=== PATIENT | male | born 1965 | race Caucasian/White ===

== ENCOUNTER 2022-10-12 16:20 | Emergency (ER) | payer OTHER ==
[~2022-10-12] VITALS: Ht 175.3 cm; Wt 72.6 kg
[2022-10-12] MEDS ORDERED: ACHD5005 PO (16:56)
[2022-10-12] MEDS ORDERED: IBUP-1773 PO (16:56)
--- NOTE | 2022-10-12 16:57 | ED Upper Extremity ---
General Chief Complaint: Upper Extremity Stated Complaint: LEFT SHOLDER HURTING Source: patient Exam Limitations: no limitations History of Present Illness Date Seen by Provider: Oct 12, 2022 Time Seen by Provider: 16:51 Initial Comments Patient is a 57-year-old male who presents ED with left shoulder pain. Shoulder pain for the past month and a half. States it initially started after he hit his shoulder against the plastic piece between 2 doors on his truck. [place] a sharp pain. That pain has progressed to got worse over the past month and a half. He has tried physical therapy at home without much improvement. He is concerned for possible rotator cuff tear or muscular tear. Has not been seen yet for this injury. Attempted to call [facility] orthopedic but was not able to get appointment. Patient reports pain with any overhead movement and weakness. Pain radiates to the left elbow. Difficulty putting on close or lifting anything above his shoulder. 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 Patient has been taking Tylenol ibuprofen without much improvement. Difficulty sleeping at night secondary to the pain. Patient denies of any distal numbness and tingling into the left hand. No pain in his neck. Allergies and Home Medications Allergies Uncoded Allergies: EGGS (Adverse Reaction, Intermediate, throat swelling, 02/05/11) Patient Home Medication List Home Medication List Reviewed: Yes Hydrocodone/Acetaminophen (Hydrocodone-Acetamin 5-325 mg) 5 Mg-325 Mg Tablet, 1 TAB PO Q4H PRN for PAIN-MODERATE (5-7) Prescribed by: JEIMY PRESSLEY on 10/12/221656 Ibuprofen (Ibuprofen) 600 Mg Tablet, 600 MG PO Q6H Prescribed by: JEIMY PRESSLEY on 10/12/221655 Review of Systems Constitutional: No diaphoresis, No malaise, No weakness EENTM: No ear pain, No blurred vision, No double vision Respiratory: No cough, No dyspnea on exertion Cardiovascular: No chest pain Gastrointestinal: No abdominal pain, No diarrhea, No nausea, No vomiting Genitourinary: No decreased output, No discharge Musculoskeletal: No back pain; joint pain, muscle pain, muscle stiffness Skin: No change in color, No change in hair/nails All Other Systems Reviewed Negative Unless Noted: Yes Physical Exam Vital Signs Vital Signs - First Documented 10/12/22 16:34 Temp 36.4 Pulse 93 Resp 17 B/P (MAP) 98/77 (84) O2 Delivery Room Air Capillary Refill : Height, Weight, BMI Height: '" Weight: lbs. oz. kg; BMI Method:Stated General Appearance: WD/WN, no apparent distress HEENT: PERRL/EOMI, normal ENT inspection, TMs normal, pharynx normal Neck: non-tender, full range of motion, supple, normal inspection Cardiovascular: regular rate, rhythm, no edema, no gallop, no JVD Respiratory: chest non-tender, lungs clear, normal breath sounds, no respirat ory distress, no accessory muscle use Gastrointestinal: normal bowel sounds, non tender, soft, no organomegaly Back: normal inspection, no CVA tenderness Shoulder: limited ROM (Pain with flexion extension above 70 degrees. Weakened strength 4/5 with empty can test and speeds test. 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, no motor/sensory deficits, alert, normal mood/affect, oriented x 3 Skin: normal color, warm/dry Progress/Results/Core Measures Results/Orders My Orders Orders - JESSICA VEGA Hydrocodone/Apap 5/325 Tablet (Lortab 5 (10/12/22 17:01) Medications Given in ED Current Medications Medications Dose Ordered Sig/Balaji Route Start Time Stop Time Status Last Admin Dose Admin Acetaminophen/ Hydrocodone Bitart 1 ea STK-MED ONCE .ROUTE 10/12/22 17:01 10/12/22 17:03 DC 10/12/22 17:00 1 EA Vital Signs/I&O 10/12/22 16:34 Temp 36.4 Pulse 93 Resp 17 B/P (MAP) 98/77 (84) O2 Delivery Room Air Departure Communication (PCP) Reviewed previous ER visits, H&P, medication. Due to current complaint of left shoulder pain secondary to mechanism of injury and length of symptoms recommended a x-ray but patient refused. He states this feels more muscular or tendon injury. He did have some notable weakness with flexion and abduction above the shoulder. 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 Negative Spurling test. No headache or dizziness. No chest pain or shortness of breath. Did have some crepitus with range of motion. Concerning for arthritic versus rotator cuff injury versus proximal bicep tendon injury. There appeared to be no evidence of bicipital tear with examining both arms. Anything over the shoulder seems to be worse. I do recommend further orthopedic evaluation. Was requesting a few days worth of pain medication. He has been in contact with for states orthopedic. Will likely need x-ray first and then MRI. Not able to rule out a fracture patient acknowledges. Return precautions were discussed with patient. Impression Primary Impression: Shoulder pain Disposition: HOME, SELF-CARE Condition: Stable Departure-Patient Inst. Decision time for Depature: 16:55 Referrals: [facility] [place] ROBIN,LOCAL PHYSICIAN (PCP) Primary Care Physician Patient Instructions: Shoulder Pain (DC) Add. Discharge Instructions: Recommend follow-up with orthopedic for further evaluation. Work on range of motion exercises. Ice to help with swelling. All discharge instructions reviewed with patient and/or family. Voiced understanding. Scripts Ibuprofen (Ibuprofen) 600 Mg Tablet 600 MG PO Q6H for PAIN, #20 TAB 0 Refills Prov: JESSICA VEGA 10/12/22 Hydrocodone/Acetaminophen (Hydrocodone-Acetamin 5-325 mg) 5 Mg-325 Mg Tablet 1 TAB PO Q4H PRN for PAIN-MODERATE (5-7), #8 TAB Prov: JESSICA VEGA 10/12/22 JESSICA VEGA Oct 12, 2022 16:57
[2022-10-12 17:00] VITALS: BP 137/86
[2022-10-12] MEDS ORDERED: HYDROcodone/APAP 5 MG/325 MG (LORTAB) TAB ONE (17:01)
== END 2022-10-12 17:00 | disposition home or self-care (01) ==
LOC: EDUNIT# 16:20 → ER 16:30
DX: M25.512 Pain in left shoulder (principal); Z28.310 Unvaccinated for COVID-19; W22.8XXA Striking against or struck by other objects, initial encounter

== ENCOUNTER 2022-12-28 10:26 | Emergency (ER) | payer OTHER ==
[2022-12-28] MEDS ORDERED: ACHD5005 PO (11:12)
--- NOTE | 2022-12-28 11:12 | ED Upper Extremity ---
General Chief Complaint: Upper Extremity Stated Complaint: LT SHOULDER PAIN Nursing Triage Note: PT AMB TO RM 3 WITH CC OF L SHOULDER PAIN. 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 PT REPORTS CALLED PCP AND WAS TOLD TO COME TO ED FOR PAIN MANAGEMENT. Source: patient Exam Limitations: no limitations History of Present Illness Date Seen by Provider: Dec 28, 2022 Time Seen by Provider: 11:07 Initial Comments Patient is a 57-year-old male who presents ED with left shoulder pain. Patient reports pain over the past 2 to 3 months. Injured his left shoulder. States he has had discontinue sharp pain radiating from the left shoulder to the lateral arm and into the wrist and hand. Pain for the most part is constant worse with any type of movement. Worse when he lays on his left arm. Pain does appear to radiate up into the left side and neck. [facility] Currently working on getting patient a follow-up visit with orthopedic. 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 Denies chest pain, cough or shortness of breath. Patient has been taken Tylenol and ibuprofen without much improvement. States he is having difficulty sleeping secondary to the pain. He Was not able to get a visit with his [facility] provider this week after multiple calls Allergies and Home Medications Allergies Uncoded Allergies: EGGS (Adverse Reaction, Intermediate, throat swelling, 02/05/11) Patient Home Medication List Home Medication List Reviewed: Yes Hydrocodone/Acetaminophen (Hydrocodone-Acetamin 5-325 mg) 5 Mg-325 Mg Tablet, 1 TAB PO Q4H PRN for PAIN-MODERATE (5-7) Prescribed by: JEIMY PRESSLEY on 10/12/22 1657 Hydrocodone/Acetaminophen (Hydrocodone-Acetamin 5-325 mg) 5 Mg-325 Mg Tablet, 1 TAB PO Q4H PRN for PAIN-MODERATE (5-7) Prescribed by: JEIMY PRESSLEY on 12/28/22 1112 Ibuprofen (Ibuprofen) 600 Mg Tablet, 600 MG PO Q6H Prescribed by: EJIMY PRESSLEY on 10/12/22 1656 Review of Systems Constitutional: No chills, No diaphoresis, No fever, No malaise, No weakness EENTM: No ear discharge, No blurred vision, No double vision, No dental problems, No hoarseness, No mouth pain, No mouth swelling Respiratory: No cough, No dyspnea on exertion Cardiovascular: No chest pain Gastrointestinal: No abdominal pain, No diarrhea, No nausea, No vomiting Genitourinary: No decreased output, No discharge Musculoskeletal: No back pain; joint pain, muscle pain, muscle stiffness Skin: No change in color, No change in hair/nails All Other Systems Reviewed Negative Unless Noted: Yes Past Pasfkbv-Cuwwoi-Rabvlr Hx Patient Social History Tobacco Use?: Yes Tobacco type used: Cigarettes Smoking Status: Current Everyday Smoker Substance use?: No Alcohol Use?: No Pt feels they are or have been: No Physical Exam Vital Signs Vital Signs - First Documented 12/28/22 10:40 Pulse 81 Resp 18 B/P (MAP) 123/90 (101) Pulse Ox 99 O2 Delivery Room Air Capillary Refill : Less Than 3 Seconds Height, Weight, BMI Height: '" Weight: lbs. oz. kg; 23.00 BMI Method:Stated General Appearance: WD/WN, no apparent distress HEENT: PERRL/EOMI, normal ENT inspection, TMs normal, pharynx normal Neck: non-tender, full range of motion, supple, normal inspection, other (Negative Spurling sign. No cervical midline tenderness. Normal active range of motion the neck) Cardiovascular: regular rate, rhythm, no edema, no gallop, no JVD Respiratory: chest non-tender, lungs clear, normal breath sounds, no respiratory distress, no accessory muscle use Gastrointestinal: normal bowel sounds, non tender, soft, no organomegaly Back: normal inspection, no CVA tenderness, no vertebral tenderness Shoulder: limited ROM, soft tissue tenderness (Tenderness to the left lateral shoulder, left proximal lateral humerus. Limited passive range of motion to 0 to 90 degrees. Pain with abduction, flexion with mild weakness. 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 Neurovascular intact. No skin color changes. 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 Patient presents to ED with continuous left shoulder pain. Patient was seen here October 12 for this left shoulder pain. Patient states he followed up with his [facility] provider and had a scheduled MRI performed today. He states over the past 4 to 5 days he has had increasing worsening pain. Difficulty sleeping. Unable to sleep on the left arm. Sharp pain radiating from the left shoulder to the elbow and wrist. Differential diagnosis cervical radiculopathy, rotator cuff injury, impingement syndrome. Does report some cramping of the left arm. Denies of any chest pain, cough or shortness of breath. MRI currently pending. Patient denies of any recent traumas. 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 Any over the head movement makes the pain worse. Weakness with abduction and flexion. Positive liftoff test. Pain with internal and external rotation. Concerning for rotator cuff versus capsulitis versus impingement. Does have some pain to the left trapezius. Due to the sharp shooting pain radiating to the wrist this could be cervical radiculopathy, however he had a negative Spurling test. If MRI inconclusive may benefit with EMG. No chest pain, cough or shortness of breath. Requesting for a few days of pain medication as he was not able to be seen by his [facility] provider for the past week. Multiple calls without receiving a call back. Has been using Tylenol ibuprofen without much improvement. We will provide a few days worth. It would likely benefit with formal therapy as this could develop into frozen shoulder Impression Primary Impression: Shoulder pain Disposition: 01 HOME, SELF-CARE Condition: Stable Departure-Patient Inst. Decision time for Depature: 11:10 Referrals: ANITA BULL (PCP) Primary Care Physician RAFAEL FREDERICK MD Patient Instructions: Muscle Strain (DC) Add. Discharge Instructions: Need to follow-up with orthopedic. If any worsening symptoms return back to ED All discharge instructions reviewed with patient and/or family. Voiced un derstanding. Scripts Hydrocodone/Acetaminophen (Hydrocodone-Acetamin 5-325 mg) 5 Mg-325 Mg Tablet 1 TAB PO Q4H PRN for PAIN-MODERATE (5-7), #8 TAB Prov: JESSICA VEGA 12/28/22 JESSICA VEGA Dec 28, 2022 11:12
[2022-12-28 11:17] VITALS: BP 118/83
== END 2022-12-28 11:17 | disposition home or self-care (01) ==
LOC: EDUNIT# 10:26 → ER 10:28
DX: M25.512 Pain in left shoulder (principal); F17.210 Nicotine dependence, cigarettes, uncomplicated
CPT/HCPCS: 99281

== ENCOUNTER → 2022-12-28 | Outpatient (CLI) | payer OTHER ==
[~2022-12-28] MED LIST: ACHD5005 PO; IBUP-1773 PO
--- NOTE | 2022-12-28 10:36 | Diagnostic Imaging Report ---
EXAMINATION: Magnetic resonance imaging of the left shoulder without contrast. DATE: December 28, 2022. COMPARISON: None. HISTORY: 57-year-old male, left shoulder pain. TECHNIQUE: Magnetic Resonance Imaging sequences were performed of the shoulder without contrast. FINDINGS: ROTATOR CUFF, LIGAMENTS, TENDONS, AND MUSCLES: The supraspinatus, infraspinatus, teres minor, and subscapularis tendons and muscles are intact. There is normal rotator cuff muscle bulk and signal. LONG HEAD OF BICEPS: The biceps labral attachment and long head of the biceps tendon is intact. The long head of the biceps tendon is normally positioned within the bicipital groove. GLENOHUMERAL JOINT: The humeral head is well positioned relative to the glenoid. The labrum is grossly intact. There is no identified paralabral cyst. The articular cartilage is grossly intact. There is no glenohumeral joint effusion. There is mild thickening and increased signal of the axillary pouch. There is also loss of normal fat signal in the rotator interval. ACROMIOCLAVICULAR JOINT: The acromioclavicular joint is normally aligned. The coracoclavicular and coracoacromial ligaments are intact. There are no degenerative changes of the acromioclavicular joint. BONE: There is no os acromiale. There is no Hill-Sachs deformity. There is no acute fracture, bone contusion, or evidence of osteonecrosis. BURSAE AND SOFT TISSUES: The bursae and soft tissue surrounding the shoulder are unremarkable. IMPRESSION: 1. Intact rotator cuff and proximal long head of the biceps tendon. 2. Intact labrum and articular cartilage of the glenohumeral joint. No glenohumeral joint effusion. 3. Mild thickening and increased signal of the axillary pouch as well as loss of normal fat signal in the rotator interval which MRI findings which can be associated with adhesive capsulitis although this would be a clinical diagnosis. 4. No acute fracture, bone contusion, or other notable bone marrow signal abnormality. 5. Intact acromioclavicular joint. Dictated by: Dictated on workstation # [id number]
--- NOTE | 2022-12-28 11:39 | Diagnostic Imaging Report ---
Exam: MRI left humerus without contrast. Date: December 28, 2022. Indication: 57-year-old male, left humerus pain. Injury. Comparison: Same day MRI shoulder December 28, 2022. Technique: Multiple noncontrast MRI sequences of the left humerus were obtained. Findings: The imaged tendons are intact. There is no identified abnormal intramuscular signal. There is normal muscle bulk. There is no acute fracture, bone contusion, or other bone marrow signal abnormality. Additional soft tissue assessment is unremarkable. There is no elbow joint effusion. Please see separately dictated same MRI left shoulder report for findings at the level of the left shoulder. Impression: 1. Intact imaged muscles and tendons. 2. No acute fracture or bone contusion. 3. Please see separately dictated MRI left shoulder report for findings at the level of the left glenohumeral joint. Dictated by: Dictated on workstation # [id number]
== END ==
LOC: RAD 09:05
PROVIDERS: ATTEND Nurse Practitioner
DX: Z01.89 Encounter for other specified special examinations (principal)
CPT/HCPCS: 73218; 73221

== ENCOUNTER 2023-02-07 14:14 | Emergency (ER) | payer OTHER ==
[~2023-02-07] VITALS: Ht 175.2 cm; Wt 73.0 kg
[2023-02-07 14:18] VITALS: BP 160/87
[2023-02-07] MEDS ORDERED: METH4TAB10 PO (14:36)
[2023-02-07] MEDS ORDERED: NAPR-915 PO (14:36)
--- NOTE | 2023-02-07 14:36 | ED Upper Extremity ---
General Chief Complaint: Upper Extremity Stated Complaint: LT ARM PAIN Source: patient Exam Limitations: no limitations History of Present Illness Date Seen by Provider: Feb 07, 2023 Time Seen by Provider: 14:34 Initial Comments Patient is a 57-year-old male who presents ED for chronic left shoulder pain. Injury this past May. Had MRIs performed of his shoulder. Currently waiting to be evaluated by orthopedic. Patient was seen in December for similar type pain. States that he was doing better with in-home physical therapy. Started increased workload and noted increasing pain of the left shoulder. Pain radiates from the left top of the shoulder down to the left elbow. Pain with overhead movement. Denies of any numbness and tingling the left hand. Patient has been taken Tylenol without much improvement. Denies headache, dizziness, neck pain, nausea, vomit, diarrhea fever, chills. Allergies and Home Medications Allergies Uncoded Allergies: EGGS (Adverse Reaction, Intermediate, throat swelling, 02/05/11) Patient Home Medication List Home Medication List Reviewed: Yes Hydrocodone/Acetaminophen (Hydrocodone-Acetamin 5-325 mg) 5 Mg-325 Mg Tablet, 1 TAB PO Q4H PRN for PAIN-MODERATE (5-7) Prescribed by: JEIMY PRESSLEY on 10/12/22 1657 Hydrocodone/Acetaminophen (Hydrocodone-Acetamin 5-325 mg) 5 Mg-325 Mg Tablet, 1 TAB PO Q4H PRN for PAIN-MODERATE (5-7) Prescribed by: JEIMY PRESSLEY on 12/28/22 1112 Ibuprofen (Ibuprofen) 600 Mg Tablet, 600 MG PO Q6H Prescribed by: JEIMY PRESSLEY on 10/12/22 1656 Methylprednisolone (Methylprednisolone Dose Pack) 4 Mg Tab.ds.pk, 4 MG PO UD Prescribed by: JEIMY PRESSLEY on 02/07/23 1436 Naproxen (Naproxen) 500 Mg Tablet, 500 MG PO Q12H Prescribed by: JEIMY PRESSLEY on 02/07/23 1436 Review of Systems Constitutional: No chills, No diaphoresis, No fever, No malaise, No weakness EENTM: No hearing loss, No blurred vision, No double vision Respiratory: No cough Cardiovascular: No chest pain Gastrointestinal: No abdominal pain, No nausea, No vomiting Genitourinary: No decreased output, No discharge Musculoskeletal: No back pain; joint pain, muscle pain, muscle stiffness Skin: No change in color All Other Systems Reviewed Negative Unless Noted: Yes Physical Exam Vital Signs Capillary Refill : Height, Weight, BMI Height: '" Weight: lbs. oz. kg; 23.00 BMI Method:Stated General Appearance: WD/WN, no apparent distress HEENT: PERRL/EOMI, normal ENT inspection, TMs normal, pharynx normal Neck: non-tender, full range of motion, supple, normal inspection Cardiovascular: regular rate, rhythm, no edema, no gallop, no JVD Respiratory: chest non-tender, lungs clear, normal breath sounds, no respiratory distress, no accessory muscle use Gastrointestinal: normal bowel sounds, non tender, soft, no organomegaly Back: normal inspection, no CVA tenderness Shoulder: limited ROM (Limited range of motion passive over 90 degrees. Audit Spec strength out of 5. Anterior and left posterior shoulder tenderness. Strength with internal and external rotation 5 out of 5. 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, no motor/sensory deficits, alert, normal mood/affect, oriented x 3 Skin: normal color, warm/dry Progress/Results/Core Measures Results/Orders My Orders Orders - JESSICA VEGA Ketorolac Injection (Toradol Injection) (02/07/23 14:45) Orphenadrine Inj (Ed Only) (Norflex Inje (02/07/23 14:45) Medications Given in ED Current Medications Medications Dose Ordered Sig/Balaji Route Start Time Stop Time Status Last Admin Dose Admin Ketorolac Tromethamine 30 mg ONCE ONCE IM 02/07/23 14:45 02/07/23 14:46 02/07/23 14:40 30 MG Orphenadrine Citrate 60 mg ONCE ONCE IM 02/07/23 14:45 02/07/23 14:46 02/07/23 14:40 60 MG Departure Communication (PCP) Reviewed previous ER visits, H&P, lab testing. Differential diagnoses chronic shoulder pain, shoulder sprain and strain. Reviewed MRIs performed on December 28 which showed concern of adhesive capsulitis. Intact muscles and tendons. Intact rotator cuff, labrum. Patient states he is currently following up with his primary care physician. Has not followed up with orthopedic. Patient has been taken Tylenol. Patient states he has been doing physical therapy but potentially reinjured it while lifting heavy objects at work. 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 Denies of any falls. On exam he does have limited passive range of motion above 90 degrees. No severe weakness noted. Reviewed MRIs with patient. Discussed the importance of physical therapy at home. Discussed with patient we will not continue prescribing narcotics. Patient can follow-up with his primary care physician. Provided dose of Toradol and Norflex. Will discharge with Medrol Dosepak and naproxen. Continue with your stretching at home. Provided limitations for at work for the next week. Return precaution were discussed with patient. Patient denies any chest pain or shortness of breath Impression Primary Impression: Shoulder pain Disposition: HOME, SELF-CARE Condition: Stable Departure-Patient Inst. Decision time for Depature: 14:35 Referrals: ANITA BULL (PCP/Family) Primary Care Physician Patient Instructions: Shoulder Pain (DC) Scripts Naproxen (Naproxen) 500 Mg Tablet 500 MG PO Q12H, #20 TAB Prov: JESSICA VEGA 02/07/23 Methylprednisolone (Methylprednisolone Dose Pack) 4 Mg Tab.ds.pk 4 MG PO UD for 6 Days, #21 PKG PER DOSE PACK INSTRUCTIONS Prov: JESSICA VEGA 02/07/23 Work/School Note: Work Release Form Date Seen in the Emergency Department: Feb 07, 2023 Other Restrictions Listed Below: Avoid lifting greater than 10 pounds for the next week the left arm JESSICA VEGA Feb 07, 2023 14:36
[2023-02-07] MEDS ORDERED: ORPHENADRINE 60 MG/2 ML (NORFLEX) AMP (ED ONLY) IM ONE (14:45)
[2023-02-07] MEDS ORDERED: KETOROLAC 30 MG/ML VIAL IM ONE (14:45)
== END 2023-02-07 14:47 | disposition home or self-care (01) ==
LOC: EDUNIT# 14:14 → ER 14:15
DX: M25.512 Pain in left shoulder (principal); X50.0XXA Overexertion from strenuous movement or load, initial encounter; Y92.59 Other trade areas as the place of occurrence of the external cause; Y99.0 Civilian activity done for income or pay
CPT/HCPCS: 99284

== ENCOUNTER 2023-04-18 11:57 | Emergency (ER) | payer OTHER ==
[~2023-04-18] VITALS: Ht 172 cm; Wt 72.0 kg
[~2023-04-18 11:57] MED LIST changes: +METH4TAB10 PO; +NAPR-915 PO
[2023-04-18 12:35] LABS: BASOPHILS % (AUTO) 0 % (0-10); EOSINOPHILS # (AUTO) 0.3 10^3/uL (0.0-0.3); EOSINOPHILS % (AUTO) 5 % (0-10); HEMATOCRIT 46 % (40-54); HEMOGLOBIN 15.4 g/dL (13.3-17.7); LYMPHOCYTES # (AUTO) 2.3 10^3/uL (1.0-4.0); LYMPHOCYTES % (AUTO) 34 % (12-44); MEAN CORPUSCULAR HEMOGLOBIN 33 pg (25-34); MEAN CORPUSCULAR HGB CONC 33 g/dL (32-36); MEAN CORPUSCULAR VOLUME 100 fL (80-99); MEAN PLATELET VOLUME 9.3 fL (9.0-12.2); MONOCYTES # (AUTO) 0.3 10^3/uL (0.0-1.0); MONOCYTES % (AUTO) 5 % (0-12); NEUTROPHILS # (AUTO) 3.7 10^3/uL (1.8-7.8); NEUTROPHILS % (AUTO) 56 % (42-75); PLATELET COUNT 332 10^3/uL (130-400); WHITE BLOOD COUNT 6.7 10^3/uL (4.3-11.0)
[2023-04-18 12:51] LABS: BUN/CREATININE RATIO 10; CARBON DIOXIDE 24 MMOL/L (21-32); CHLORIDE 98 MMOL/L (98-107); CREATININE SERUM 0.88 MG/DL (0.60-1.30); GFR ESTIMATED 102; GLUCOSE 169 MG/DL (70-105); POTASSIUM 3.9 MMOL/L (3.6-5.0); SODIUM 135 MMOL/L (135-145)
[2023-04-18 12:52] LABS: ALANINE AMINOTRANSFERASE 18 U/L (0-55); ALBUMIN 4.6 GM/DL (3.2-4.5); ALKALINE PHOSPHATASE 60 U/L (40-136); BILIRUBIN,TOTAL 0.5 MG/DL (0.1-1.0); CALCIUM 9.8 MG/DL (8.5-10.1); MAGNESIUM 2.2 MG/DL (1.6-2.4); TOTAL PROTEIN 7.6 GM/DL (6.4-8.2)
--- NOTE | 2023-04-18 12:56 | Diagnostic Imaging Report ---
EXAMINATION: Left wrist radiographs, 3 views. COMPARISON: None. HISTORY: 57-year-old male, left wrist pain. FINDINGS: There is sideplate and screw fixation hardware at the level of the distal radius which is intact. There is mild distal radial ulnar arthritis. The additional joint spaces appear well preserved. There is no identified acute fracture. There is no identified unexpected radiopaque foreign body. There is no prominent focal soft tissue swelling. IMPRESSION: 1. Intact sideplate and screw fixation hardware at the level of the distal radius without residual fracture line or complication. 2. Mild distal radial ulnar arthritis. Dictated by: Dictated on workstation # [id number]
--- NOTE | 2023-04-18 12:56 | Diagnostic Imaging Report ---
INDICATION: Shortness of air, fever COMPARISON: None available TECHNIQUE: Frontal lateral radiographs of the chest dated 04/18/2023. FINDINGS: The cardiac silhouette is within normal limits in size. No significant pulmonary vascular congestion. The lungs are clear. No pleural effusion. No pneumothorax. No acute osseous abnormality. IMPRESSION: No acute cardiopulmonary abnormality. Dictated by: Dictated on workstation # [id number]
--- NOTE | 2023-04-18 12:59 | ED General ---
General Chief Complaint: Fever-Adult/Adol Stated Complaint: FEVER, NECK PAIN Nursing Triage Note: FEVER STARTING LAST SAT. STATES FEVER BROKE ON SAT. STATES EYES AND FINGERS ARE NOT FUNCTIONING WELL, BODY ACHES, AND MAKING MENTAL MISTAKES THAT IS NOT NORMAL. STATES HE IS LETHARGIC AND HIS WRIST HURTS. Source of Information: Patient Exam Limitations: No Limitations History of Present Illness Date Seen by Provider: Apr 18, 2023 Time Seen by Provider: 12:03 Initial Comments This is a 57-year-old man presents to the emergency room with complaints of flulike symptoms that started over a week ago. He reports last week Saturday through Saturday he had fevers. 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 He had to stop work with the horses because he was slipping out of the stirrups and feeling dizzy. Saturday he felt significantly improved. Throughout the workweek he has had trouble concentrating at work. 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 He states, "I feel like I have a concussion." He repo rts swollen lymph nodes in his neck. He also has a left wrist injury from about a month ago when his hand got caught in a rope while trimming trees. He did not have significant pain in the wrist until this illness started. He has experienced some mild shortness of breath and fatigue with walking but denies cough. Today he was advised to leave work and go home because of his symptoms. He was on his way to get lunch when he began vomiting. He is no longer nauseous. He is afebrile during assessment. Allergies and Home Medications Allergies Coded Allergies: No Known Drug Allergies (Unverified , 04/18/23) Patient Home Medication List Home Medication List Reviewed: Yes Hydrocodone/Acetaminophen (Hydrocodone-Acetamin 5-325 mg) 5 Mg-325 Mg Tablet, 1 TAB PO Q4H PRN for PAIN-MODERATE (5-7) Prescribed by: JEIMY PRESSLEY on 10/12/22 1657 Hydrocodone/Acetaminophen (Hydrocodone-Acetamin 5-325 mg) 5 Mg-325 Mg Tablet, 1 TAB PO Q4H PRN for PAIN-MODERATE (5-7) Prescribed by: JEIMY PRESSLEY on 12/28/22 1112 Ibuprofen (Ibuprofen) 600 Mg Tablet, 600 MG PO Q6H Prescribed by: JEIMY PRESSLEY on 10/12/22 1656 Methylprednisolone (Methylprednisolone Dose Pack) 4 Mg Tab.ds.pk, 4 MG PO UD Prescribed by: JEIMY PRESSLEY on 02/07/23 1436 Naproxen (Naproxen) 500 Mg Tablet, 500 MG PO Q12H Prescribed by: JEIMY PRESSLEY on 02/07/23 1436 Ondansetron (Ondansetron Odt) 4 Mg Tab.rapdis, 4 MG SL Q4H PRN for NAUSEA/VOMITING Prescribed by: ISABEL LUND on 04/18/23 1417 Review of Systems Review of Systems Constitutional: see HPI, dizziness, fever, weakness EENTM: no symptoms reported Respiratory: no symptoms reported Cardiovascular: no symptoms reported Gastrointestinal: see HPI Genitourinary: no symptoms reported Musculoskeletal: see HPI Skin: no symptoms reported Psychiatric/Neurological: See HPI Hematologic/Lymphatic: No Symptoms Reported Immunological/Allergic: no symptoms reported Past Xzgpkdp-Boecbr-Pthote Hx Patient Social History Tobacco Use?: Yes Substance use?: Yes Substance type: Marijuana Alcohol Use?: Yes Alcohol Frequency: Once in a while Immunizations Up To Date First/Initial COVID19 Vaccinat: 2 SHOTS Past Medical History Surgeries: Yes (Left chest thoracotomy, removal of wires from chest) Orthopedic (Left wrist) Respiratory: Yes (Pneumothorax) Cardiac: No Neurological: No Reproductive Disorders: No Gastrointestinal: No Musculoskeletal: Yes (Multiple traumas and fractures) Endocrine: No HEENT: No Cancer: No Psychosocial: No Integumentary: No Physical Exam Vital Signs Vital Signs - First Documented 04/18/23 12:06 Temp 36.6 Pulse 73 Resp 16 B/P (MAP) 143/119 (127) Pulse Ox 98 O2 Delivery Room Air Capillary Refill : Less Than 3 Seconds Height, Weight, BMI Height: '" Weight: lbs. oz. kg; 24.00 BMI Method:Stated General Appearance: No Apparent Distress, WD/WN, Thin HEENT: PERRL/EOMI, Normal ENT Inspection, Other (Oropharynx somewhat dry) Neck: Normal Inspection, Supple; No Lymphadenopathy (L), No Lymphadenopathy (R) Respiratory: Lungs Clear, Normal Breath Sounds, No Accessory Muscle Use Cardiovascular: Regular Rate, Rhythm, No Edema, No Murmur Gastrointestinal: Normal Bowel Sounds, Non Tender, Soft; No Distended Extremity: Normal Inspection, Non Tender, No Pedal Edema, Other (Tenderness along the ulnar aspect of the left wrist) Neurologic/Psychiatric: Alert, Oriented x3, No Motor/Sensory Deficits, Normal Mood/Affect Skin: Normal Color, Warm/Dry Progress/Results/Core Measures Suspected Sepsis SIRS Temperature: Pulse: 73 Respiratory Rate: 16 Laboratory Tests 04/18/23 12:10: White Blood Count 6.7 Blood Pressure 143 /119 Mean: 127 Laboratory Tests 04/18/23 12:10: Creatinine 0.88, Platelet Count 332, Total Bilirubin 0.5 Results/Orders Lab Results Laboratory Tests Test 04/18/23 12:10 04/18/23 12:55 Range/Units White Blood Count 6.7 4.3-11.0 10^3/uL Red Blood Count 4.62 4.30-5.52 10^6/uL Hemoglobin 15.4 13.3-17.7 g/dL Hematocrit 46 40-54 % Mean Corpuscular Volume 100 H 80-99 fL Mean Corpuscular Hemoglobin 33 25-34 pg Mean Corpuscular Hemoglobin Concent 33 32-36 g/dL Red Cell Distribution Width 12.7 10.0-14.5 % Platelet Count 332 130-400 10^3/uL Mean Platelet Volume 9.3 9.0-12.2 fL Immature Granulocyte % (Auto) 0 % Neutrophils (%) (Auto) 56 42-75 % Lymphocytes (%) (Auto) 34 12-44 % Monocytes (%) (Auto) 5 0-12 % Eosinophils (%) (Auto) 5 0-10 % Basophils (%) (Auto) 0 0-10 % Neutrophils # (Auto) 3.7 1.8-7.8 10^3/uL Lymphocytes # (Auto) 2.3 1.0-4.0 10^3/uL Monocytes # (Auto) 0.3 0.0-1.0 10^3/uL Eosinophils # (Auto) 0.3 0.0-0.3 10^3/uL Basophils # (Auto) 0.0 0.0-0.1 10^3/uL Immature Granulocyte # (Auto) 0.0 0.0-0.1 10^3/uL Percent Immature Platelet Fraction 2.3 0.0-7.6 % Erythrocyte Sedimentation Rate 1 0-30 MM/HR Sodium Level 135 135-145 MMOL/L Potassium Level 3.9 3.6-5.0 MMOL/L Chloride Level 98 98-107 MMOL/L Carbon Dioxide Level 24 21-32 MMOL/L Anion Gap 13 5-14 MMOL/L Blood Urea Nitrogen 9 7-18 MG/DL Creatinine 0.88 0.60-1.30 MG/DL Estimat Glomerular Filtration Rate 102 BUN/Creatinine Ratio 10 Glucose Level 169 H 70-105 MG/DL Calcium Level 9.8 8.5-10.1 MG/DL Corrected Calcium 8.5-10.1 MG/DL Magnesium Level 2.2 1.6-2.4 MG/DL Total Bilirubin 0.5 0.1-1.0 MG/DL Aspartate Amino Transf (AST/SGOT) 20 5-34 U/L Alanine Aminotransferase (ALT/SGPT) 18 0-55 U/L Alkaline Phosphatase 60 40-136 U/L Total Creatine Kinase 89 30-200 U/L C-Reactive Protein < 0.30 <0.50 MG/DL Total Protein 7.6 6.4-8.2 GM/DL Albumin 4.6 H 3.2-4.5 GM/DL Urine Color YELLOW Urine Clarity CLEAR Urine pH 6.0 5-9 Urine Specific [place] 1.020 1.016-1.022 Urine Protein NEGATIVE NEGATIVE Urine Glucose (UA) TRACE H NEGATIVE Urine Ketones NEGATIVE NEGATIVE Urine Nitrite NEGATIVE NEGATIVE Urine Bilirubin NEGATIVE NEGATIVE Urine Urobilinogen 0.2 < = 1.0 MG/DL Urine Leukocyte Esterase NEGATIVE NEGATIVE Urine RBC (Auto) NEGATIVE NEGATIVE Urine RBC 0-2 /HPF Urine WBC RARE /HPF Urine Squamous Epithelial Cells NONE /HPF Urine Crystals NONE /LPF Urine Bacteria TRACE /HPF Urine Casts NONE /LPF Urine Mucus MODERATE H /LPF Urine Yeast TRACE /HPF Urine Culture Indicated NO My Orders Orders - ISABEL DIAZ MD Cbc And Automated Diff (04/18/23 12:24) Comprehensive Metabolic Panel (04/18/23 12:24) Magnesium (04/18/23 12:24) Ua Culture If Indicated (04/18/23 12:24) Erythrocyte Sedimentation Rate (04/18/23 12:24) Crp Fs (04/18/23 12:24) Ed Iv/Invasive Line Start (04/18/23 12:24) Creatine Kinase (04/18/23 12:24) Chest Pa/Lat (2 View) (04/18/23 12:24) Wrist 3 View Left (04/18/23 12:30) Lactated Ringers 1,000 Ml (Lactated Ring (04/18/23 13:45) Medications Given in ED Vital Signs/I&O 04/18/23 04/18/23 12:06 14:20 Temp 36.6 Pulse 73 85 Resp 16 16 B/P (MAP) 143/119 (127) 119/73 Pulse Ox 98 97 O2 Delivery Room Air Room Air Capillary Refill : Less Than 3 Seconds Blood Pressure Mean: 127 Progress Note : Progress Note Patient was interviewed and examined upon arrival. He was hydrated with 1 L of LR. He did not require any antiemetics as the nausea past after he vomited prior to arrival. He did not require any pain medication. Labs were obtained, reviewed, and interpreted in their entirety by me. CBC was unremarkable. There was a lymphocytic shift to his WBC differential suggesting viral illness. CMP demonstrated mild hyperglycemia with blood sugar of 169. CMP was otherwise unremarkable. Urinalysis was unremarkable. Inflammatory markers including ESR and CRP were quite low. This indicated acute bacterial infection or longstanding inflammatory processes are unlikely. Patient is likely recovering from a viral illness. He was stable without any major acute complaints after hydration and review of labs. See discharge instructions for further discussion. 2 view x-rays of the chest were reviewed by me. I appreciated no acute abnormalities. Radiologist report was also reviewed. X-rays of the left wrist were also reviewed. The plate and the wrist appeared in good position with no broken hardware. No acute fractures were appreciated. Radiologist's report was also reviewed as below. Diagnostic Imaging Diagonstic Imaging: Xray Plain Films/CT/US/NM/MRI: chest Comments NAME: MARSHALL ZULUAGA MED REC#: [id number] PT STATUS: REG ER : 1965 PHYSICIAN: ISABEL DIAZ MD ADMIT DATE: 04/18/23/ER FS Draft Date of Exam:04/18/23 CHEST PA/LAT (2 VIEW) INDICATION: Shortness of air, fever COMPARISON: None available TECHNIQUE: Frontal lateral radiographs of the chest dated 04/18/2023. FINDINGS: The cardiac silhouette is within normal limits in size. No significant pulmonary vascular congestion. The lungs are clear. No pleural effusion. No pneumothorax. No acute osseous abnormality. IMPRESSION: No acute cardiopulmonary abnormality. Dictated on workstation # [id number] Dict: 04/18/23 1254 Trans: 04/18/23 1256 CVB [id number] Interpreted by: KASI JACKSON MD Diagonstic Imaging: Xray Plain Films/CT/US/NM/MRI: other (wrist) Comments NAME: MARSHALL ZULUAGA [facility] REC#: [id number] PT STATUS: REG ER : 1965 PHYSICIAN: ISABEL DIAZ MD ADMIT DATE: 04/18/23/ER FS Draft Date of Exam:04/18/23 WRIST 3 VIEW LEFT EXAMINATION: Left wrist radiographs, 3 views. COMPARISON: None. HISTORY: 57-year-old male, left wrist pain. FINDINGS: There is sideplate and screw fixation hardware at the level of the distal radius which is intact. There is mild distal radial ulnar arthritis. The additional joint spaces appear well preserved. There is no identified acute fracture. There is no identified unexpected radiopaque foreign body. There is no prominent focal soft tissue swelling. IMPRESSION: 1. Intact sideplate and screw fixation hardware at the level of the distal radius without residual fracture line or complication. 2. Mild distal radial ulnar arthritis. Dictated on workstation # [id number] Dict: 04/18/23 1253 Trans: 04/18/23 1255 CVB [id number] Interpreted by: OLIVER LOWE MD Departure Impression Primary Impression: Nausea & vomiting Qualified Codes: R11.2 - Nausea with vomiting, unspecified Additional Impressions: Myalgia Febrile illness Disposition: 01 HOME, SELF-CARE Condition: Improved Departure-Patient Inst. Decision time for Depature: 14:15 Referrals: ANITA BULL (PCP/Family) Primary Care Physician Patient Instructions: Fever, Adult ED Add. Discharge Instructions: Start with a noncarbonated clear liquid diet and gradually advance your diet with small quantities of bland food as tolerated. Use Zofran (ondansetron) as prescribed for nausea or vomiting. You may take Tylenol (acetaminophen) up to 1000 mg every 6 hours as needed for pain or fever. Add ibuprofen up to 600 mg every 6 hours as needed for additional relief of pain or fever if needed. Return to care if you have worsening of symptoms despite following these instructions. All discharge instructions reviewed with patient and/or family. Voiced understanding. Scripts Ondansetron (Ondansetron Odt) 4 Mg Tab.rapdis 4 MG SL Q4H PRN for NAUSEA/VOMITING, #10 TAB Prov: ISABEL DIAZ MD 04/18/23 Work/School Note: Work Release Form Date Seen in the Emergency Department: Apr 18, 2023 Return to Work: Apr 19, 2023 Restrictions: Return-No Fever (24hrs), Return-No Vomiting(24hrs) ISABEL DIAZ MD Apr 18, 2023 12:59
[2023-04-18 13:03] LABS: BILIRUBIN,URINE NEGATIVE (NEGATIVE); CLARITY,URINE CLEAR; COLOR,URINE YELLOW; GLUCOSE, URINE (UA) TRACE (NEGATIVE); KETONES,URINE NEGATIVE (NEGATIVE); LEUKOCYTE ESTERASE ,URINE NEGATIVE (NEGATIVE); NITRITE,URINE NEGATIVE (NEGATIVE); PROTEIN,URINE NEGATIVE (NEGATIVE)
[2023-04-18 13:15] LABS: BACTERIA,URINE TRACE /HPF; RBC,URINE 0-2 /HPF; WBC,URINE RARE /HPF
[2023-04-18 13:17] LABS: YEAST,URINE TRACE /HPF
[2023-04-18] MEDS ORDERED: LACTATED RINGERS 1,000 ML 1,000 ML IV ONE (13:45)
[2023-04-18 13:50] LABS: ERYTHROCYTE SEDIMENTATION RATE 1 MM/HR (0-30)
[2023-04-18] MEDS ORDERED: ONDA4TAB11 SL (14:17)
[2023-04-18 14:20] VITALS: BP 119/73
[2023-04-18 14:39] LABS: CREATINE KINASE 89 U/L (30-200)
== END 2023-04-18 14:20 | disposition home or self-care (01) ==
LOC: EDUNIT# 11:57 → ER FS 12:01
DX: R11.2 Nausea with vomiting, unspecified (principal); M79.10 Myalgia, unspecified site; R50.9 Fever, unspecified; Z72.0 Tobacco use
CPT/HCPCS: 36415; 71046; 73110; 80053; 81000; 82550; 83735; 85025; 85652; 86141